=== PATIENT | male | born 1960 | race African-American/Black ===

== ENCOUNTER 2021-11-06 00:16 | Emergency (ER) | payer MEDICAID ==
[~2021-11-06] VITALS: Ht 172.7 cm; Wt 80.0 kg
[2021-11-06] MEDS ORDERED: DIAZEPAM 2 MG TABLET PO ONE (01:00)
[2021-11-06] MEDS ORDERED: PREDNISONE 20MG TABLET PO ONE (01:00)
[2021-11-06] MEDS ORDERED: KETOROLAC 60MG/2ML VIAL IM ONE (01:00)
[2021-11-06 03:09] VITALS: BP 153/83
== END 2021-11-06 03:09 | disposition home or self-care (01) ==
LOC: ER 00:16
DX: M54.41 Lumbago with sciatica, right side (principal); M25.551 Pain in right hip; E11.9 Type 2 diabetes mellitus without complications; I10 Essential (primary) hypertension
CPT/HCPCS: 96372; 99283; J1885; J7512